=== PATIENT | male | born 1975 | race Caucasian/White ===

== ENCOUNTER 2018-11-12 10:08 | Observation (INO) | payer SELFPAY ==
[~2018-11-12] VITALS: Ht 180.3 cm; Wt 81.8 kg
--- NOTE | 2018-11-12 12:01 | NUR ---
PT RESTING ON BED, FAMILY AT BEDSIDE.
[2018-11-12 14:10] LABS: CALC OSMOLALITY 278 mosm/kg (275-300); CALCIUM 9.7 mg/dL (8.5-10.1); CARBON DIOXIDE 25.2 mmol/L (21.0-32.0); CHLORIDE - SERUM 103 mmol/L (98-107); CREATININE - SERUM 1.1 mg/dL (0.6-1.3); GLUCOSE 91 mg/dL (74-106); POTASSIUM - SERUM 4.2 mmol/L (3.5-5.1); SODIUM 138 mmol/L (136-145); UREA NITROGEN 21 mg/dL (7-18); eGFR NON AFRICAN AMERICAN 78 mL/min (90-120)
[2018-11-12 14:59] LABS: BASOPHILS 0.4 % (0-2); EOSINOPHILS 2.4 % (0-7); HEMATOCRIT 43.1 % (42.0-54.0); HEMOGLOBIN 14.7 g/dL (13.5-17.5); IMMATURE GRANULOCYTES 0.1 % (0-5); MCH 29.2 pg (26.0-34.0); MCHC 34.1 g/dL (31.0-37.0); MCV 85.5 fL (80.0-100.0); MEAN PLATELET VOLUME 12.6 fL (7.4-10.4); MONOCYTES 7.7 % (2-11); NEUTROPHILS 69.4 % (40-80); PLATELET COUNT 257 10x3/uL (130-400); RBC 5.04 10x6/uL (4.20-6.10); RDW 13.1 % (11.5-14.5); WBC 8.4 10x3/uL (4.8-10.8)
--- NOTE | 2018-11-12 19:10 | NUR ---
ASSUMED CARE AT THIS TIME. PT SITTING UP IN BED WATCHING TV WITH FAMILY AT BEDSIDE. STILL WAITING ON SURGERY TO CALL FOR PRE-OP. PT DENIES PAIN OR NEEDS AT THIS TIME. BED LOW LOCKED POSITON, SIDE RAILS UP TIMES TWO, CALL LIGHT WITHIN REACH.
--- NOTE | 2018-11-12 23:20 | NUR ---
PT LEFT FOR SURGERY AT THIS TIME. ADMIT PACKET GIVEN.
--- NOTE | 2018-11-12 23:20 | NUR ---
PT WENT TO SURGERY
[2018-11-13] MEDS ORDERED: DURICEF500 MG PO (01:11)
[2018-11-13] MEDS ORDERED: NORCO 7.5/325 T1 TA1 PO (01:11)
[2018-11-13 02:00] VITALS: BP 129/83
--- NOTE | 2018-11-13 02:00 | NUR ---
PT ARRIVED TO THE FLOOR. ALERT AND ORIENTED. NO SIGNS OF DISTRESS. BREATHING EVEN AND UNLABORED. VITAL SIGNS STABLE. WILL GET PT TO VOID BEFORE SENDING PT HOME
--- NOTE | 2018-11-13 03:26 | NUR ---
PT LYING IN BED, NO SIGNS OF DISTRESS. AWAITING PT TO VOID. STATES NO NEEDS OR COMPLAINTS AT THIS TIME. CL IN REACH, WILL CONTINUE TO MONITOR
[2018-11-13 03:48] VITALS: BP 129/83; Ht 180.3 cm; Wt 81.8 kg
[2018-11-13 04:00] VITALS: BP 103/60
--- NOTE | 2018-11-13 04:00 | NUR ---
PT VOIDED. DISCHARGE PAPERS SIGNED. VITALS STABLE. PT ALERT AND ORIENTED.
--- NOTE | 2018-11-13 08:14 | OP ---
PATIENT NAME: Radha HU MEDICAL RECORD: [id number] :79 LOCATION:[id number] ADMISSION DATE:11/12/18 SURGEON: YOSI BRICENO DO DATE OF OPERATION: 11/13/2018 PROCEDURE PERFORMED: Left wrist extensor tendon repair of the extensor pollicis brevis and abductor pollicis longus in zone 7 and radial sensory nerve repair. PREOPERATIVE DIAGNOSES: Laceration of the EPB and APL in zone 7 extensor tendon and radial sensory nerve laceration. POSTOPERATIVE DIAGNOSES: Laceration of the EPB and APL in zone 7 extensor tendon and radial sensory nerve laceration. INDICATIONS: Mr. 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 He noticed that after he dropped a brick on it and the laceration, he could not extend his thumb. Once he knows he could do that, he came to the ER and noticed that his hand was going numb as well in the radial sensory nerve distribution. X-rays were taken. No fractures were seen; however, due to the immobility of the thumb, I was asked to see him. He was noted to have no strength in the extensor pollicis brevis or abductor pollicis longus and he also was numb in the radial sensory distribution over the thumb and on the dorsal aspect of the index finger more over the second metacarpal and also slightly into the palm of the hand. After noting this, I informed him that he likely lacerated his extensor tendons and this nerve, I said that I could try to repair the nerve; however, may not have good results on getting the sensory back. He was okay with that and I told him I could repair the tendons as well and that it is quite a long recovery, he did have a risk of re-rupture of those tendons and loss of movement in his thumb. He was okay with those risks and the benefits of having mobility with his thumbnail extended again. His EPL was intact, which was checked and he signed the consent. SURGEON: Yosi Briceno DO DESCRIPTION OF PROCEDURE: The patient was taken to the operative suite and laid in supine position, given 2 grams of antibiotic and cefadroxil. He had been given 2 grams Ancef in the ER earlier yesterday. The left upper extremity was prepped and draped in a sterile fashion. The tourniquet was under the drapes above the elbow. A timeout was performed, everyone was in agreeance with the correct side, site, patient and procedure. Esmarch was used to exsanguinate the left upper extremity. The tourniquet was inflated to 250 mmHg, it was up for 43 minutes during the procedure. Once the tourniquet was inflated, the laceration which was a horizontal in nature or transverse if you will was explored. The distal stump of the APL and the EPB were noted and then the compartment sheath was released in order to find the proximal tendons. Did have to extend the incision proximally approximately 2 cm and to find the proximal stumps. These were encountered and repaired individually with a 4-0 Ethibond using a modified Bailey stitch in both of them and then a running locking stitch at the repair site circumferentially on the repair. Then, the radial sensory nerve was encountered. The sheath of the first dorsal gauze lightly tacked down in order to prevent the tendons from snapping volarly, but the thumb was moved; one to demonstrate good repair, two to indicate that it was not too tight and it did in fact move. The radial sensory nerve was then encountered right at the incision of the laceration site and it was repaired with 7-0 Prolene with simple OPERATIVE REPORT [id number] Radha HU interrupted sutures, just to the epineurium, approximating it. The wound was thoroughly irrigated at that time and then the incision and laceration was closed with 5-0 Monocryl in inverted interrupted fashion. The tourniquet was then let down and 0.5% Marcaine was injected around the site, 10 mL of it. The Steri-Strips were then placed on the wound. Adaptic, 4 x 4 were placed on the wound. Webril was then placed on the thumb and in the palm and senior care up the forearm and a 3 x 12 Orthoglass splint was used to cut into a Y shape at the more distal and in order to create a thumb spica. A thumb spica splint was placed on the patient. He was awakened and taken to recovery in stable condition. BLOOD LOSS: Minimal. COMPLICATIONS: None. TRANSINT:[id number] Voice Confirmation ID: [id number] DOCUMENT ID: [id number] YOSI BRICENO DO at 0814 CC: [id number] DICTATION DATE: 11/13/18 0119 CONSTRUCTION ACCOUNTANT: 11/13/18 0754 DIS IN 11/13/18 [facility] [address] [place] [address]
--- NOTE | 2018-11-14 17:07 | MORECARE ---
CASE MANAGEMENT DISCHARGE SUMMARY PATIENT: Radha HU UNIT: [id number] ADM DATE: 11/12/18 AGE: 43 : [birth year] SEX: M ROOM/BED: [id number] AUTHOR: BLANCA ZUNIGA PHYSICIAN: REFERRING PHYSICIAN: YOSI BRICENO DO DATE OF SERVICE: 11/14/18 Discharge Plan [facility] [facility] 1975 Planned Disposition: Anticipated Discharge Date: Discharge Date: 11/13/2018 Expected LOS: 0 Initial Reviewer: [email or web address] Initial Review Date: 11/14/2018 Generated: 11/14/18 6:07 pm Patient Name: Radha HU Page [id number] at 1707 All edits/amendments must be made on the electronic document DICTATION DATE: 11/14/181705 SUPERVISOR MACHINING: MANDY 11/14/181705 RPT#: [id number] DC DATE:11/13/18 STATUS: DIS IN [facility] [address] [facility] [place] [address] END OF REPORT
== END 2018-11-13 04:38 | disposition home or self-care (01) ==
LOC: D.OPS 10:08 → D.ER 10:08 → EDSTATUS 11:48 → D.EDHOLD 12:20 → OBSVTIME 12:21 → D.MS 11-13 00:39
PROVIDERS: ADMIT Orthopaedic Surgery
DX: S56.522A Laceration of other extensor muscle, fascia and tendon at forearm level, left arm, initial encounter (principal); S64.22XA Injury of radial nerve at wrist and hand level of left arm, initial encounter; W22.8XXA Striking against or struck by other objects, initial encounter; K21.9 Gastro-esophageal reflux disease without esophagitis